=== PATIENT | female | born 1980 | race Caucasian/White ===

== ENCOUNTER → 2017-10-06 11:11 | Outpatient (CLI) | payer OTHER, MEDICAID, SELFPAY ==
[2017-10-06 12:17] LABS: Add Manual Diff / Slide Review NO; Basophils Percent Auto 0.3 % (0-2); Eosinophils Percent Auto 4.4 % (2-4); Hematocrit 38.5 % (36-46); Hemoglobin 13.3 g/dL (12.0-16.0); Lymphocytes Percent Auto 20.4 % (25-40); Mean Corpuscular HGB Conc 34.7 % (30-36); Mean Corpuscular Hemoglobin 31.1 PG (26-34); Mean Corpuscular Volume 89.6 fL (80-100); Monocytes Percent Auto 5.9 % (3-14); Neutrophils Absolute Auto 6600 /uL (3000-5900); Platelet Count 279 X10^3/uL (150-400); Red Blood Cell Count 4.29 X10^6/uL (4.0-5.2); Red Cell Distribution Width 12.9 % (11.6-14.8); White Blood Cell Count 9.5 X10^3/uL (4.5-11.0)
[2017-10-06 15:53] LABS: Hepatitis B Surface Antigen NEGATIVE s/c (NEGATIVE)
[2017-10-06 16:11] LABS: HIV 1 and 2 Antibody NEGATIVE (NEGATIVE); Hep C Virus Ab w/Reflex Quant NEGATIVE s/c (NEGATIVE)
[2017-10-08 19:45] LABS: HSV 2 IGG AB < 0.90 index (< 0.90); HSV1IGG < 0.90 index (< 0.90)
[2017-10-14 11:50] LABS: Rapid Plasma Reagin NON-REACTIVE
== END ==
PROVIDERS: Family Provider Nurse Practitioner; PCP Nurse Practitioner; Visit Provider Specialist
DX: Z34.91 Encounter for supervision of normal pregnancy, unspecified, first trimester (principal)
CPT/HCPCS: 36415; 80055; 86695; 86696; 86703; 86787; 86803; 86850; 86900; 86901; 87086

== ENCOUNTER → 2017-11-30 09:20 | Outpatient (CLI) | payer OTHER, MEDICAID, SELFPAY ==
--- NOTE | 2017-11-30 09:23 | DI.US.S_ITS ---
PROCEDURE: US OB >= 14 WEEKS FETUS INDICATIONS: 20 WEEK ANATOMIC SURVEY OUTSIDE/PRIOR DATING DATA: Last menstrual period (LMP): 06/09/17. LMP-based estimated date of delivery (MARGARET): 03/16/18. First dating scan (date and location): 08/22/17. Estimated date of delivery (MARGARET) from first dating scan: 04/09/18. TECHNIQUE: Real-time scanning was performed of the fetus, with image documentation and biometric measurements. Endovaginal scanning: Not needed for this study COMPARISON: [facility], , OB >= 14 WEEKS FETUS, 11/02/2017, 12:59. [facility], , OB >= 14 WEEKS FETUS, 09/05/2017, 9:52. FINDINGS: General: A single living intrauterine gestation is present. Presentation: Breech. Placenta: Placental position is anterior, without previa. Amniotic fluid index: 13.8 cm, normal range is 5-24 cm. heart rate: 144 beats per minute. Maternal cervical canal: 4.2 cm long. Normal lower limit is 2.5 cm. biometrics: Biparietal diameter: 4.6 cm, 20 weeks 0 days Head circumference: 18.1 cm, pointing weeks 4 days Abdominal circumference: 14.7 cm, 20 weeks 0 days Femur length: 3.2 cm, 15 weeks 6 days Estimated gestational age from initial scan: 21 weeks 3 days Composite gestational age from present scan: 20 weeks 1 day Estimated weight and percentile: 327 g, 3rd percentile Measurement variability for biometric dating: +/- 7 days from 14 weeks to 15 weeks 6 days gestation, +/- 10 days from 16 weeks to 21 weeks 6 days gestation, +/- 2 weeks from 22 weeks to 27 weeks 6 days gestation, +/- 3 weeks for 28 weeks gestation or later. weight reference: 4500 g or EFW >90/95% is considered macrosomia or large for gestational age. EFW <10% is small for gestational age. EFW 5% or less is considered intra-uterine growth restriction. Anatomic survey: Neuro: Ventricles are non-dilated at less than 10 mm. Cisterna magna is normal at 3-11 mm. Cerebellum is normal in size and morphology. Nuchal skin fold: Normal at less than 6 mm between 14-21 weeks gestational age. Face: Nose and lips, facial profile are normal. Spine: No evidence for spina bifida. Heart: 4-chambered heart is present, with normal ventricular outflow tracts. Diaphragm: Diaphragm is intact. Stomach: Left-sided stomach is present. Kidneys: No hydronephrosis. Normal is less than 5 mm in 2nd trimester, less than 7 mm in 3rd trimester. Cord: 3-vessel cord has orthotopic insertion. Bladder: Normal in size. Extremities: All 4 extremities identified. IMPRESSION: Breech presentation at this time. Normal survey of anatomy. growth parameters place the current estimated weight at the lower 3rd percentile for the most accurate gestational age (from first OB ultrasound). Dictated by: Darryl Fernández M.D. on 11/30/2017 at 11:34 Approved by: Darryl Fernández M.D. on 11/30/2017 at 11:37
== END ==
PROVIDERS: PCP Family Medicine; Visit Provider Specialist
DX: Z36.89 Encounter for other specified antenatal screening (principal); Z3A.20 20 weeks gestation of pregnancy
CPT/HCPCS: 76811

== ENCOUNTER 2018-01-14 15:02 | Observation (INO) | payer OTHER, MEDICAID, SELFPAY ==
[2018-01-14] MEDS: NIFEdipine 10 MG CAPSULE PO ×4 (15:54→16:56)
== END 2018-01-14 17:13 | disposition home or self-care (01) ==
LOC: LABOR 15:05
PROVIDERS: Admitting Provider Specialist; PCP Family Medicine; Visit Provider Specialist
DX: O60.02 Preterm labor without delivery, second trimester (principal); Z3A.27 27 weeks gestation of pregnancy
CPT/HCPCS: 59025; 59050; 59200; G0378; G0379

== ENCOUNTER 2018-01-16 15:56 | Observation (INO) | payer OTHER, MEDICAID, SELFPAY ==
--- NOTE | 2018-01-16 17:17 | PM.OBTRLD ---
Visit Information Visit Information Date of evaluation: 01/16/18 Primary OB Provider: Radha Sevilla On-call OB Provider: Lanny Moulton Reason for Evaluation: Yes pre-term labor Evaluation Evaluation Baseline heart rate: 140 Variability: Average (6-10) monitor accelerations: Present monitor decelerations: Absent Uterine Contraction Intensity: Mild Category of Tracing: I Diagnosis, Plan/Disposition Final Diagnosis (1) contractions: Current Visit: No Status: Acute (2) 28 weeks gestation of : Current Visit: No Status: Acute Plan/Disposition Plan: 37 year old at 28 weeks with regular contractions though quite difficult to see on the monitor secondary to body habitus. FHT reassuring. Contractions improved with hydration and nifedipine. UA negative. FFN negative. Patient instructed to follow up with Dr. Sevilla this week.
[2018-01-16] MEDS: NIFEdipine 10 MG CAPSULE PO ×2 (19:13→19:33)
[2018-01-16 19:25] LABS: Fetal Fibronectin Negative
[2018-01-16 19:40] LABS: Bacteria Urine None Seen; RBC Urine None Seen (0-5/HPF)
[2018-01-16 19:45] LABS: Appearance Urine UA CLEAR; Bilirubin Urine UA NEGATIVE (NEGATIVE); Color Urine UA YELLOW; Glucose Urine UA NEGATIVE (Normal); Ketones Urine UA NEGATIVE (NEGATIVE); Leukocyte Esterase Urine UA NEGATIVE (NEGATIVE); Nitrite Urine UA Negative (Negative); Occult Blood Urine UA NEGATIVE (Negative); Protein Urine UA NEGATIVE (Negative); Specific Gravity Urine UA 1.015 (1.000-1.035); Urobilinogen Urine UA 0.2 E.U./dL (0.2)
[2018-01-16 20:00] LABS: Amorphous Sediment Urine 1+; Culture Indicated Urine Cult Not Indicated; Squamous Epithelial Cell Urine 0-1 /HPF; WBC Urine 0-1/HPF (0-5/HPF)
== END 2018-01-16 20:11 | disposition home or self-care (01) ==
LOC: LABOR 15:58
PROVIDERS: Family Medicine; Admitting Provider Specialist; PCP Family Medicine; Visit Provider Specialist
DX: O60.03 Preterm labor without delivery, third trimester (principal); Z3A.28 28 weeks gestation of pregnancy
CPT/HCPCS: 59025; 59050; 81001; 82731; G0378; G0379

== ENCOUNTER → 2018-03-22 16:39 | Outpatient (CLI) | payer OTHER, MEDICAID, SELFPAY ==
[2018-03-23 15:08] LABS: Strep Grp B PCR POS for Grp B Strep
== END ==
PROVIDERS: PCP Family Medicine; Visit Provider Specialist
DX: Z34.83 Encounter for supervision of other normal pregnancy, third trimester (principal); Z3A.37 37 weeks gestation of pregnancy
CPT/HCPCS: 87653

== ENCOUNTER 2018-04-02 19:04 | Inpatient (IN) | payer OTHER, MEDICAID, SELFPAY ==
[2018-04-02] MEDS: miSOPROStol 25 MCG TABLET VAG (19:40)
[2018-04-02 20:14] VITALS: BP 127/69
[2018-04-03] MEDS: miSOPROStol 25 MCG TABLET VAG (01:34)
[2018-04-03] MEDS: PENICILLIN G POTASSIUM 5,000,000 UNIT in DEXTROSE 5% IN WATER 250 ML IV (03:00)
[2018-04-03 03:09] LABS: Add Manual Diff / Slide Review NO; Basophils Percent Auto 1.1 % (0-2); Eosinophils Percent Auto 2.5 % (2-4); Hematocrit 39.6 % (36-46); Hemoglobin 13.3 g/dL (12.0-16.0); Lymphocytes Percent Auto 21.5 % (25-40); Mean Corpuscular HGB Conc 33.7 % (30-36); Mean Corpuscular Hemoglobin 30.1 PG (26-34); Mean Corpuscular Volume 89.4 fL (80-100); Monocytes Percent Auto 6.3 % (3-14); Neutrophils Absolute Auto 9700 /uL (3000-5900); Neutrophils Percent Auto 68.6 % (50-75); Platelet Count 269 X10^3/uL (150-400); Red Blood Cell Count 4.43 X10^6/uL (4.0-5.2); Red Cell Distribution Width 14.4 % (11.6-14.8); White Blood Cell Count 14.1 X10^3/uL (4.5-11.0)
[2018-04-03] MEDS: LACTATED RINGERS 1,000 ML 100 ML IV (03:25)
[2018-04-03] MEDS: PENICILLIN G POTASSIUM 3,000,000 UNIT/50 ML FROZ.PIGGY 100 UNIT IV (07:10)
[2018-04-03] MEDS: fentaNYL 100 MCG/2 ML INJ IV (08:15)
[2018-04-03] MEDS: IBUPROFEN 600 MG TABLET PO ×3 (09:00→21:10)
[2018-04-03] MEDS: HYDROCODONE/ACET 5/325 TABLET 2 TAB PO ×3 (09:58→23:37)
--- NOTE | 2018-04-03 10:50 | PM.OBHP.1 ---
OB HPI Date/Time Date of admission: 04/02/18 Date Patient Seen: 04/03/18 Time Patient Seen: 07:51 History of Present Condition Chief complaint: labor & delivery : 7 Para: 3 Estimated Date of Delivery: 04/09/18 Estimated Gestational Age (weeks): 39 Narrative: Regina Bella is a 37 year old female admitted for induction for distance from the hospital with positive group B strep and history of fast labor Indications Indication for induction OB: maternal distance History of Present care: good care, initiated at week # (7), number of visits (13) and pounds weight gain (24) Dating criteria: LMP confirmed by 1st trimester US Ultrasounds: normal mid trimester US Obstetrical complications: gestational diabetes (Diet control) Medical complications: none Preadmission Labs Blood type: A (+) positive -: Antibody screen: negative, Cystic fibrosis screen: positive ( negative), GBS status: positive, HBsAG: negative, HIV: negative, HSV 1: negative, HSV 2: negative and RPR/VDLR: negative -: Chlamydia screen: not detected and Gonorrhea screen: not detected -: Rubella: immune and Varicella: immune HCAB: negative 1 hr GTT: 158 Prior (ies) History: 07/03/00 39 week vacuum assisted vaginal delivery female 7 lb 15 oz gestational diabetes 2004 D&C 08/13/2005 39 week gestation 8 lb 6 oz male 01/04/08 8 lb 6 oz 40 weeks female 2013 T AB, 2017 SAB Evaluation Evaluation Baseline heart rate: 125 Variability: Moderate (11-25) monitor accelerations: Present monitor decelerations: Absent Category of Tracing: I Cervical dilation (cm): 5 Cervical effacement (%): 100 station: -1 Laboratory results: Laboratory Tests 04/02/18 04/02/18 21:00 21:00 WBC 14.1 H RBC 4.43 Hgb 13.3 Hct 39.6 MCV 89.4 MCH 30.1 MCHC 33.7 RDW 14.4 Plt Count 269 Neut % (Auto) 68.6 Lymph % (Auto) 21.5 L [place] % (Auto) 6.3 Eos % (Auto) 2.5 Baso % (Auto) 1.1 Neut # (Auto) 9700 H Blood Type A Positive Antibody Screen Negative Meds Home Medications Medication Instructions Recorded Confirmed Type blood sugar diagnostic strips #100 each 02/10/18 04/03/18 Rx blood-glucose meter #1 each 02/10/18 04/03/18 Rx lancets #100 each 02/10/18 04/03/18 Rx Allergies Allergy/AdvReac Type Severity Reaction Status Date / Time butorphanol [From Stadol] Allergy Mild Hallucinati Verified 04/02/18 20:19 ng latex Allergy Mild Redness of Verified 04/02/18 20:20 Skin progesterone AdvReac Unknown LG WT GAIN Verified 04/02/18 20:18 & HORMONE LEVELS MESSED UP Review of Systems Review of Systems All systems reviewed & are unremarkable except as noted in HPI and below Exam Vital Signs (past 8 hours): Blood pressure 108/58, pulse of 82, temperature 36.4? Narrative Exam Narrative: HEENT exam within normal limits. Lungs are clear to auscultation percussion. Heart is regular rate and rhythm no S3-S4 or murmurs. Abdomen is soft, nontender. Abdomen is gravid. Extremities with trace edema and nontender. Normal DTRs. Objective Labs Result Diagrams: 04/02/18 21:00 Labs: Laboratory Results - last 24 hr 04/02/18 04/02/18 21:00 21:00 WBC 14.1 H RBC 4.43 Hgb 13.3 Hct 39.6 MCV 89.4 MCH 30.1 MCHC 33.7 RDW 14.4 Plt Count 269 Neut % (Auto) 68.6 Lymph % (Auto) 21.5 L [place]lee % (Auto) 6.3 Eos % (Auto) 2.5 Baso % (Auto) 1.1 Neut # (Auto) 9700 H Blood Type A Positive Antibody Screen Negative Assessment and Plan (1) 39 weeks gestation of : Current visit: Yes Status: Acute (2) Mother positive for group B Streptococcus colonization: Current visit: Yes Status: Acute Plan: Plan: Patient was admitted for Cytotec induction. She lives some distance from the hospital with a history of fast labors and positive group B strep culture. She received IV penicillin and 2 Cytotec. She appears to be in active labor. Anticipate vaginal delivery.
--- NOTE | 2018-04-03 11:44 | PM.OBPRVD ---
Events: Labor Induction (Distance from the hospital, group B strep positive, fast labors) Delivery date: 04/03/18 Intrapartal events: None Induction method: per misoprostol protocol Delivery monitor: external FHT and external uterine Route of delivery: Laceration description: None Estimated blood loss (mL): 250 Anesthesia type: None Complications: Precipitous delivery Narrative: Patient arrived on Labor and delivery for Prostin induction. She received 2 doses of Prostin. She had spontaneous rupture membranes clear fluid. heart tones category 1 throughout labor. Patient progressed normally. She received 1 dose of IV fentanyl for pain. Shortly after receiving the fentanyl she had a precipitous delivery in the bed with the nurse present. The viable male infant placed on maternal abdomen. The cord was clamped cut and cord bloods obtained. The baby was briefly taken to the warmer for evaluation then returned to the maternal abdomen. The placenta delivered spontaneously, intact, with 3 vessels. Baby weighed 7 lb 4 oz. 3299 g. Apgars were 8 and 9. There was a slight tear in the posterior fourchette but did not appear to need suturing. There were no cervical or vaginal tears. Estimated blood loss was 250 cc. Both mother doing well. Baby 1: Placenta delivery description: Spontaneous cord vessel description: Nuchal Cord score (1 min): 8 score (5 min): 9 Plan for aftercare: Routine care
[2018-04-04] MEDS: HYDROCODONE/ACET 5/325 TABLET 2 TAB PO ×3 (03:50→13:59)
[2018-04-04 06:15] LABS: Hematocrit 38.7 % (36-46)
[2018-04-04] MEDS: IBUPROFEN 600 MG TABLET PO (09:05)
--- NOTE | 2018-04-04 10:29 | PM.OBDS.1 ---
Discharge Providers Date of admission: 04/02/18 19:04 Primary care physician: Joe Delgadillo MD Consults: 04/03/18 02:50 Consult to Anesthesiology Urgent Comment: Consulting Provider: Anesthesiologist Reason for consultation: epidural Has provider been notified: No 04/03/18 08:46 Consult to Technical Business Analyst Routine Comment: Discharge provider: Radha Sevilla MD Discharge Date: 04/04/18 Summary Date Patient Seen: 04/04/18 Time Patient Seen: 10:30 Hospital Course: Patient was admitted for Cytotec induction for distance from the hospital, group B strep positive culture, history of fast labors. The patient received 2 doses of Cytotec. She had a precipitous vaginal delivery. She delivered a viable male infant weighing 7 lb 4 oz. Both infant and mother doing well. Patient denies any signs or symptoms of preeclampsia. No fevers. She is urinating and ambulating well. Blood pressure 118/76, pulse of 84, temperature 97.4?. Abdomen is soft, nontender. Uterus is firm, at U, nontender. Perineum is intact. Mild lochia. Extremities with trace edema and nontender. Patient is Rh positive and rubella immune. Peripartum Data Infant Delivery Method: Natural Vaginal Laceration description: None Procedures: Cytotec induction, IV penicillin for positive group B strep culture, vaginal delivery complications: none [place] 1: Gender: Male Disposition of : home Discharge Diagnosis (1) 39 weeks gestation of : Status: Acute (2) Mother positive for group B Streptococcus colonization: Status: Acute (3) Vaginal delivery: Start Date: 04/03/18 Status: Acute Status at Discharge Functional status at discharge: independent ambulation Overall status at discharge: patient is progressing back to baseline Time Spent with Patient Total time spent providing and/or coordinating discharge services: Less than 30 minutes Objective Labs Result Diagrams: 04/04/18 05:58 Labs: Laboratory Results - last 24 hr 04/04/18 05:58 Hgb 13.0 Hct 38.7 Discharge Plan Discharge Plan Patient Disposition: Home Discharge Med Rec/Prescriptions Prescriptions: New hydrocodone-acetaminophen 5-325 mg Tablet 2 tab PO Q4HR Qty: 30 RF: 0 ibuprofen 600 mg Tablet 600 mg PO Q6HR PRN (Reason: Pain, Mild (1-3)) Qty: 30 RF: 0 Discontinued blood-glucose meter misc .ROUTE .MEDSUPPLY Qty: 1 RF: 0 blood sugar diagnostic [Blood Glucose Test] strip .ROUTE .MEDSUPPLY Qty: 100 RF: 3 lancets [Finger[employer]ix Lancets] misc .ROUTE .MEDSUPPLY Qty: 100 RF: 2 Follow up/Referrals: Radha Sevilla MD [Physician] - 1 Month Joe Delgadillo MD [Primary Care Provider] - Provider Discharge Instructions Diet: Regular Activity: Nothing in vagina for 4 weeks Skin/Wound/Dressing Care Report to your healthcare provider any signs of infection, such as:: chills, fever, increased pain and unusual drainage Discharge Data Primary Care Provider: Joe Delgadillo Attending Provider: Radha Sevilla Admit Date/Time: 04/02/18 19:04
[2018-04-04 10:48] VITALS: BP 127/69; PULSE 84; RESP 16; TEMP 36.3
== END 2018-04-04 14:50 | disposition home or self-care (01) | DRG 560 ==
PROVIDERS: Admitting Provider Specialist; PCP Family Medicine; Visit Provider Specialist
DX: O24.410 Gestational diabetes mellitus in pregnancy, diet controlled (principal); O99.824 Streptococcus B carrier state complicating childbirth; Z3A.39 39 weeks gestation of pregnancy; Z37.0 Single live birth; O62.3 Precipitate labor; O69.81X0 Labor and delivery complicated by cord around neck, without compression, not applicable or unspecified
CPT/HCPCS: 36415; 59050; 59200; 59409; 85014; 85018; 85025; 86850; 86900; 86901; G0379; J2540; J3010

== ENCOUNTER → 2023-12-22 08:36 | Outpatient (CLI) | payer SELFPAY ==
--- NOTE | 2023-12-22 08:40 | DI.MG.S_ITS ---
BILATERAL DIGITAL DIAGNOSTIC MAMMOGRAM 3D/2D: 12/22/2023 CLINICAL: Mastitis. Comparison is made to exam dated: 09/25/2013 mammogram - [facility]. Both breasts are almost entirely fatty (category a/<25% glandular tissue). No significant masses, calcifications, or other findings are seen in either breast. IMPRESSION: INCOMPLETE: NEEDS ADDITIONAL IMAGING EVALUATION No mammographic evidence of malignancy. A targeted ultrasound is recommended and will immediately follow. Based on the Tyrer Cuzick model (a risk assessment model) the patient's lifetime risk is 4.4% and her 10 year risk is 0.6%. According to the ACR, ACS, and NCCN guidelines, an annual breast MRI exam along with mammogram is recommended if the patient's lifetime risk is 20% or greater. This exam was interpreted at Station ID: [id number]. NOTE: For mammograms, a report in lay terms will be sent to the patient. Approximately 15% of breast malignancies will not be visualized mammographically. In the management of a palpable breast mass, a negative mammogram must not discourage biopsy of a clinically suspicious lesion. Electronically Signed By: Kamlesh Cotter M.D. slc/:12/22/2023 10:03:11 ACR BI-RADS Category 0: Incomplete [id number]
--- NOTE | 2023-12-22 08:40 | DI.US.S_ITS ---
LIMITED ULTRASOUND OF RIGHT BREAST: 12/22/2023 CLINICAL: Diffuse right breast pain. Comparison is made to exams dated: 12/22/2023 mammogram and 09/25/2013 mammogram - [facility]. Real-time ultrasound of the right breast 8-11, 2 o'clock region was performed. Reyes scale images of the real-time examination were reviewed. There is a benign 0.7 cm oval simple cyst in the right breast at 9 o'clock posterior depth 25 cm from the nipple. This oval simple cyst is anechoic. This correlates as an incidental finding. Color flow imaging demonstrates that there is no vascularity present. No significant abnormalities were seen sonographically in the right breast. IMPRESSION: BENIGN There is no sonographic evidence of malignancy. No mass, fluid collection, or significant cyst. The 0.7 cm oval simple cyst in the right breast is benign. A 1 year screening mammogram is recommended. This exam was interpreted at Station ID: [id number]. Electronically Signed By: Kamlesh Cotter M.D. slc/:12/22/2023 10:35:45 letter sent: Normal Exam Ultrasound BI-RADS: 2 Benign
== END ==
PROVIDERS: PCP Family Medicine; Referring Provider Obstetrics & Gynecology; Visit Provider Family Medicine
DX: N63.12 Unspecified lump in the right breast, upper inner quadrant (principal); N61.0 Mastitis without abscess; N60.01 Solitary cyst of right breast; R92.313 Mammographic fatty tissue density, bilateral breasts
CPT/HCPCS: 76642; 77066; G0279